=== PATIENT | female | born 1965 | race Caucasian/White ===

== ENCOUNTER 2016-08-04 16:48 | Outpatient (CLI) | payer OTHER | END 2016-08-04 16:49 | disposition short-term general hospital (02) | DX: M79.602 Pain in left arm (principal); M54.2 Cervicalgia; R41.82 Altered mental status, unspecified; R11.0 Nausea; R47.81 Slurred speech; V49.40XA Driver injured in collision with unspecified motor vehicles in traffic accident, initial encounter; Y92.413 State road as the place of occurrence of the external cause | CPT/HCPCS: A0425; A0429 ==